=== PATIENT | female | born 2000 | race African-American/Black ===

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

== ENCOUNTER 2022-06-13 13:34 | Emergency (ER) | payer MEDICAID ==
[~2022-06-13] VITALS: Ht 160 cm; Wt 69.0 kg
[2022-06-13] MEDS ORDERED: ACETAMINOPHEN 325MG TABLET PO ONE (15:45)
[2022-06-13] MEDS ORDERED: DEXAMETHASONE 4MG TABLET PO ONE (15:45)
[2022-06-13] MEDS ORDERED: AMOX-494 MT (16:33)
[2022-06-13] MEDS ORDERED: IBUP-2028 MT (16:33)
[2022-06-13] MEDS ORDERED: TOPUD PO (16:33)
[2022-06-13 16:47] VITALS: BP 130/74
== END 2022-06-13 16:48 | disposition home or self-care (01) ==
LOC: ER 16:06
DX: J02.0 Streptococcal pharyngitis (principal)
CPT/HCPCS: 87430; 99283; J8540

== ENCOUNTER 2022-11-08 21:17 | Emergency (ER) | payer MEDICAID ==
[~2022-11-08] VITALS: Ht 160 cm; Wt 70.0 kg
[~2022-11-08 21:17] MED LIST: AMOX-494 MT; IBUP-2028 MT; TOPUD PO
[2022-11-08 21:31] VITALS: BP 124/72
[2022-11-08 23:14] LABS: BASOPHILS % 0.4 % (0.0-2.0); EOSINOPHILS % 2.2 % (0.0-5.0); HEMATOCRIT. 33.1 % (36.0-48.0); HEMOGLOBIN. 10.7 g/dL (12.0-16.0); LYMPHOCYTES % 24.9 % (20.0-50.0); MEAN CORPUSCULAR HEMOGLOBIN 24.3 pg (28.0-32.0); MEAN CORPUSCULAR VOLUME 75.3 fL (81.0-99.0); MEAN PLATELET VOLUME 8.1 fl (7.4-10.4); MONOCYTES % 8.9 % (2.0-8.0); NEUTROPHILS % 63.6 % (40.0-76.0); PLATELET 301 x1000/uL (130-400); RED BLOOD CELL COUNT 4.39 mill/uL (4.2-5.4); RED CELL DISTRIBUTION WIDTH 13.8 % (11.6-14.6)
[2022-11-08 23:23] LABS: CHLORIDE 108 mEq/L (98-107)
[2022-11-08] MEDS ORDERED: ACETAMINOPHEN 325MG TABLET PO ONE (23:30)
[2022-11-09] MEDS ORDERED: IOHEXOL-350 100 ML BOTTLE ONE (00:39)
[2022-11-09 00:53] LABS: CLARITY URINE CLOUDY (CLEAR); COLOR URINE DARK YELLOW (YELLOW); KETONES URINE 1+ (NEGATIVE); LEUKOCYTE ESTERASE URINE NEGATIVE (NEGATIVE); NITRITE URINE NEGATIVE (NEGATIVE); OCCULT BLOOD URINE 2+ (NEGATIVE); PH URINE 5.5 (4.5-8.0); PROTEIN URINE TRACE (NEGATIVE); SPECIFIC GRAVITY URINE 1.034 (1.005-1.030)
[2022-11-09] MEDS ORDERED: ACET-2708 MT (03:32)
== END 2022-11-09 03:45 | disposition home or self-care (01) ==
LOC: ER 21:17
DX: R10.11 Right upper quadrant pain (principal); R06.02 Shortness of breath; D64.9 Anemia, unspecified
CPT/HCPCS: 36415; 71045; 71275; 76705; 80053; 81003; 81025; 83690; 85025; 85379; 99285; Q9967